=== PATIENT | female | born 1990 | race Caucasian/White ===

== ENCOUNTER 2017-02-05 20:00 | Inpatient (IN) | payer OTHER ==
--- NOTE | ~2017-02-05 | HP ---
Unit #: [id number] #: [id number] Patient: GRAZYNA HINKLE [id number] [place] [address] [id number] MR#: [id number] NAME: GRAZYNA HINKLE. ROOM: [facility] Age: 26 Sex: F Admission Date: 02/05/2017 : 1990 Attending Physician: Sylvester Jensen M.D. Admitting Physician: Sylvester Jensen M.D. Primary Care Physician: Primary Care Physician No HISTORY AND PHYSICAL HISTORY OF PRESENT ILLNESS Grazyna is a 26 year old admitted to [address] [place] [address] because of her polysubstance abuse which includes benzodiazepines and opioids. PAST MEDICAL HISTORY 1. History of illicit substance abuse which includes benzodiazepines and opioids. 2. History of withdrawal seizures. PAST SURGICAL HISTORY Nothing reported. ALLERGIES No known drug allergies. SOCIAL HISTORY She denies cigarettes, alcohol but admits to abusing opioids and benzodiazepines. FAMILY HISTORY Medically noncontributory. REVIEW OF SYSTEMS CONSTITUTIONAL: No fever or chills. HEENT: Denies any sore throat, ear pain or runny nose. CARDIOVASCULAR: Denies chest pain, irregular heart rhythm or palpitations. CHEST: Denies shortness of breath or cough. No hemoptysis. GASTROINTESTINAL: Denies nausea, vomiting, diarrhea or chronic constipation. ENDOCRINE: Denies history of increased thirst or urination. No recent significant weight loss or gain. GENITOURINARY: Denies dysuria, frequency, or hematuria. SKIN: Denies any rashes. HEMATOLOGIC: Denies history of increased bleeding or bruising. MUSCULOSKELETAL: Denies any hot, swollen joints. No generalized muscle pain. NEUROLOGIC: Denies problems with vision or speech. No frequent, severe headaches. No numbness, tingling or weakness in any extremities. Denies loss of bladder or bowel control. CURRENT MEDICATIONS 1. Zofran 8 mg q. 8 hours p.r.n. Unit #: [id number] #: [id number] Patient: GRAZYNA HINKLE 2. Nicotine patch 14 mg q day 3. Vistaril p.r.n. 4. Milk of Magnesia p.r.n. 5. Maalox p.r.n. 6. Tylenol p.r.n. 7. Desyrel 100 mg q.h.s. PHYSICAL EXAMINATION GENERAL: Alert, well-nourished, in no apparent distress. VITAL SIGNS: Blood pressure 140/80, heart rate 88, respirations 16, temperature 98.6. WEIGHT: 105 pounds. HEIGHT: 5'3". SKIN: Warm and dry without rash or lesion. HEENT: Normocephalic. TMs not viewed. Oral and nasal passages clear. Conjunctivae clear. Pupils equal, round and reactive to light and accommodation. Extraocular movements intact. NECK: Supple without lymphadenopathy or thyromegaly. HEART: Regular rate and rhythm without murmur. LUNGS: Clear. ABDOMEN: Soft, nontender. : Not done. EXTREMITIES: No evidence of cyanosis, clubbing or edema. Moves all extremities without focal deficit. NEUROLOGICAL: Grossly within normal limits. Cranial Nerves: II: Visual cruz are intact. III, IV AND : Extraocular movements are intact. Pupils are equal, round and reactive to light. V: Facial sensation is grossly normal. VII: Facial movements and expression are normal. VIII: Auditory acuity grossly intact. IX, X: Uvula is midline. Phonation is normal. XI: Patient shrugs shoulders and turns head normally. XII: Tongue protrudes in the midline. Sensory and Motor Function: Sensory and motor sensation is grossly normal. Motor: moves all extremities well. Coordination: Gait is normal. Deep Tendon Reflexes: Intact. IMPRESSION Psychiatric admission RECOMMENDATIONS PSYCHIATRIC: Per psychiatrist. MEDICAL: I see no contraindications to participating in facility's activities. MEDICAL PROGNOSIS Good. MEDICAL CONDITION Stable. Dictated by... Lucretia Ghotra P.A.-C. for Antonia Hughes M.D. Unit #: [id number] #: [id number] Patient: GRAZYNA HINKLE MARILOU/kwabena TD: 02/06/2017 20:30 JOB #: [id number] HISTORY AND PHYSICAL Page 1 of 1 X Lucretia Ghotra HISTORY AND PHYSICAL
--- NOTE | ~2017-02-05 | A ---
[facility] Nutrition Therapy DATE: 02/07/17 Patient: CLEMENCIA Vanessa HINKLE Physician: RDAHAF Address: [address] [facility] Room/Bed: [address], Zip: [place] [address] Admit Date: 02/05/17 Date of : [birth year] Height: 5 3 Weight: 104 47.35050 NUTRITIONAL ASSESSMENT: REASON: LOW BMI (18.6) PATIENT ADMITTED FOR OVERDOSE ATTEMPT AND SI PMH: NONE Anthropometrics: HT: 63", WT: 105#, BMI: 18.6, %IBW: 91 Labs: NO LABS AVAILABLE Meds: VISTARIL, ZOFRAN, DESYREL Assessment: PATIENT IS A 26 Y/O FEMALE ADMITTED FOR SI AND AN OVERDOSE ATTEMPT. PATIENT IS CURRENTLY EMPLOYED, LIVES WITH HER GIRLFRIEND, HAS A HX OF XANAX, VALIUM, LORTAB, AND PERCOCET ABUSE, AND PATIENT OVERDOSED ON XANAX AND VALIUM. PER NEEDS ASSESSMENT PATIENT STATED A POOR APPETITE WITH UNKNOWN WEIGHT CHANGES, AND SHE HAS NOT BEEN SLEEPING. NURSING REPORTED GOOD PO INTAKES. THERE ARE NO SKIN OR GI ISSUES NOTED ATT. PATIENT IS ON A REGULAR DIET. CURRENT PSYCH MEDS MAY CAUSE AN INCREASE IN WEIGHT AND APPETITE, WHICH IS DESIREABLE. PATIENT DID NOT SCORE ANY NUTRITIONAL RISK POINTS. Dx: INADEQUATE NUTRIENT INTAKE R/T CURRENT CONDITION AEB LOW BMI (18.6), DECREASED APPETITE Intervention: REGULAR DIET, MEDS PER MD, PSYCH Monitoring, Evaluation and Goals: 1. ADEQUATE PO INTAKES >50% OF MEALS 2. PREVENT, CORRECT MICRO/MACRO NUTRIENT DEFICIENCIES 3. WEIGHT; PROMOTE A STEADY WEIGHT GAIN TOWARDS A HEALTHY BMI OF 19-25 MONITOR: WEIGHTS, LABS, PO/FLUID INTAKES Recommendations: 1. CONTINUE REGULAR DIET TOLERATED. OFFER SNACKS BETWEEN MEALS. IF PATIENT HAS C/O HUNGER PLEASE ORDER LARGER PORTIONS AND RD WILL APPROVE 2. ENCOURAGE ADEQUATE PO AND FLUID INTAKES 3. OBTAIN WEIGHTS ROUTINELY (EVERY 3-4 DAYS) 4. IF PO INTAKES FALL BELOW 50% OF MEALS PLEASE ORDER ENSURE BID TO PROMOTE ADEQUATE KCAL AND PROTEIN INTAKES [facility] Nutrition Therapy DATE: 02/07/17 Patient: CLEMENCIA HINKLE Physician: ALEXANDRA Address: [address] [facility] Room/Bed: [address], Zip: [place] [address] Admit Date: 02/05/17 Date of : [birth year] Height: 5 3 Weight: [address] TO F/U PER PROTOCOL AND PRN R/T PATIENT MILDLY COMPROMISED Respectfully, JORI PERERA RD, LD [facility] cc: client file
--- NOTE | ~2017-02-05 | PN ---
Unit #: [id number] #: [id number] Patient: CLEMENCIA SAM [id number] [facility] [address] [place] [address] [id number] MR#: [id number] NAME: CLEMENCIA SAM. ROOM: [facility] Age: 26 Sex: F Admission Date: 02/05/2017 : 1990 Attending Physician: Sylvester Jensen M.D. Admitting Physician: Sylvester Jensen M.D. Primary Care Physician: Primary Care Physician Gemma SHAH NOTES DATE February 06, 2017 DISCUSSION Ms. Sam is a 26-year-old white female, who was seen today and chart was reviewed and the case was discussed with the staff. The patient has been anxious, withdrawn, and rather seclusive to herself and has been showing increasing agitation and irritability, with histrionic behavior and refusing to comply with treatment recommendations and wanted to leave, and throwing temper tantrums and has been exhibiting child-like behavior, and we will maintain a current level of precaution, and will monitor response. Dictated by... Xiang Deluna/tripp TD: 02/07/2017 11:31 JOB #: [id number] LOLIS SHAH NOTES Page 1 of 1 X Sylvester Jensen MD PROGRESS NOTE
--- NOTE | ~2017-02-05 | PN ---
Unit #: [id number] #: [id number] Patient: CLEMENCIA SAM [id number] [facility] [address] [place] [address] [id number] I MR#: [id number] NAME: CLEMENCIA SAM. ROOM: [facility] Age: 26 Sex: F Admission Date: 02/05/2017 : 1990 Attending Physician: Sylvester Jensen M.D. Admitting Physician: Sylvester Jensen M.D. Primary Care Physician: Primary Care Physician Gemma DANIELLE PROGRESS NOTES DATE February 08, 2017 DISCUSSION Ms. Sam is a 26-year-old white female, who was seen today and chart was reviewed and the case was discussed with the staff. She has been anxious, withdrawn. Meanwhile, she has been cooperative with the treatment recommendations and she has been taking the medications and tolerating them fairly well with no reported side effects. MENTAL STATUS EXAMINATION Young white female, who was casually dressed with fair personal hygiene and appears to be in no acute distress or discomfort. She was awake and alert with intact orientation. Her mood was anxious with a congruent affect. The patient denies any suicidal or homicidal ideations. Her insight and judgment remain slightly impaired. TREATMENT PLAN 1. We will continue her on her current medications and treatment protocol, and will monitor her response to the medications, and make further adjustments as needed. 2. We will continue to followup. Dictated by... Xiang Deluna/tripp TD: 02/08/2017 13:05 JOB #: [id number] Unit #: [id number] #: [id number] Patient: CLEMENCIA SAM PROGRESS NOTES Page 1 of 1 X Sylvester Jensen MD PROGRESS NOTE
--- NOTE | ~2017-02-05 | DS ---
Unit #: [id number] #: [id number] Patient: CLEMENCIA SMA [id number] [facility] [address] [place] [address] [id number] MR#: [id number] NAME: CLEMENCIA SAM. ROOM: [facility] Age: 26 Sex: F Admission Date: 02/05/2017 : 1990 Discharge Date: 02/09/2017 Attending Physician: Sylvester Jensen M.D. Primary Care Physician: Primary Care Physician No DISCHARGE SUMMARY IDENTIFYING DATA Ms. Sam is a 26-year-old single white female, who was transferred to us from the emergency room. DISCHARGE DIAGNOSES Psychiatric: Opioid dependence, moderate, in acute withdrawals; benzodiazepine dependence, moderate; and opioid-induced mood disorder. Medical: None. Stressors: Moderate psychosocial stressors. HISTORY OF PRESENT ILLNESS Please see initial psychiatric evaluation for details. PAST PSYCHIATRIC HISTORY Please see initial psychiatric evaluation for details. PAST MEDICAL HISTORY Please see initial psychiatric evaluation for details. HOSPITAL COURSE The patient was admitted to the adult chemical dependency unit at [facility] mitul Taylor and was oriented to the hospital environment. Routine p.r.n. medications were initiated, and she was started on the detox protocol; however, she was seen to be showing very poor insight into her situation and poor motivation and constantly wanting to leave and a 72 hours hold was initiated due to her emotional instability and she was closely monitored. She was unable to calm down significantly and was cooperative with the treatment recommendations and was not seen to be a danger to self or anyone else, and as such, it was decided that she will be discharged home and will continue treatment on an outpatient basis. DISCHARGE MEDICATIONS None. DISCHARGE CONDITION Stable. PROGNOSIS Guarded. Dictated by... Sylvester Jensen M.D. Unit #: [id number] #: [id number] Patient: CLEMENCIA SAM IAA/modl TD: 02/11/2017 18:48 JOB #: [id number] DISCHARGE SUMMARY Page 1 of 1 X Sylvester Jensen MD X DISCHARGE SUMMARY
--- NOTE | ~2017-02-05 | PN ---
Unit #: [id number] #: [id number] Patient: CLEMENCIA SAM [id number] [facility] [address] [place] [address] [id number] I MR#: [id number] NAME: CLEMENCIA SAM. ROOM: [facility] Age: 26 Sex: F Admission Date: 02/05/2017 : 1990 Attending Physician: Sylvester Jensen M.D. Admitting Physician: Sylvester Jensen M.D. Primary Care Physician: Primary Care Physician Gemma DANIELLE PROGRESS NOTES DATE 02/07/2017 DISCUSSION Ms. Sam is a 26-year-old white female who was seen today and chart was reviewed and case was discussed with the staff. She remains irritable, impulsive and poorly motivated and focused towards treatment and has been wanting to leave against medical advice even though she has been told that she was transferred to us from the emergency room on 72 hour hold prior because primarily because of her ____ attitude in the emergency room. However, she does not good insight into situation and as such remains poor prognosis. MENTAL STATUS EXAMINATION Young white female who was casually dressed with fair personal hygiene and appears to be in no acute distress or discomfort. She was awake and alert with impaired attention and concentration. Her mood was anxious with congruent affect. She denies any suicidal or homicidal ideation. Her insight and judgement remains slightly impaired. TREATMENT PLAN 1. Will continue current medications and treatment protocol. Will monitor her response to the medications and make further adjustments as needed. 2. Will continue to follow up. Dictated by... Xiang Deluna/tommie TD: 02/07/2017 20:41 JOB #: [id number] Unit #: [id number] #: [id number] Patient: CLEMENCIA SAM [facility] PROGRESS NOTES Page 1 of 1 X Sylvester Jensen MD PROGRESS NOTE
== END 2017-02-09 10:00 | DRG 897 ==
LOC: P1S 20:13
PROC: HZ2ZZZZ Detoxification Services for Substance Abuse Treatment (ICD-10-PCS; principal; 2017-02-05)
DX: F11.23 Opioid dependence with withdrawal (principal); F13.20 Sedative, hypnotic or anxiolytic dependence, uncomplicated; F11.24 Opioid dependence with opioid-induced mood disorder